=== PATIENT | male | born 1950 | race Caucasian/White ===

== ENCOUNTER 2018-07-04 13:32 | Emergency (ER) | payer MEDICARE, OTHER ==
[~2018-07-04] VITALS: Ht 177.8 cm; Wt 81.0 kg
[~2018-07-04 13:32] MED LIST: IBUP-1984 PO
[2018-07-04] MEDS ORDERED: LIDOcaine 2% 10ml TOPICAL JELLY (Urojet) MM ONE (17:40)
--- NOTE | 2018-07-04 19:29 | NUR ---
DR VILLAGOMEZ MADE AWARE ECHOLS CATHETER ATTEMPT WITH [facility] UNSUCCESSFUL. TO CONTACT UROLOGIST.
[2018-07-04 20:53] VITALS: BP 142/70
== END 2018-07-04 21:11 | disposition home or self-care (01) ==
LOC: ER 13:33
DX: R33.9 Retention of urine, unspecified (principal)
CPT/HCPCS: 51702; 99284